=== PATIENT | female | born 1985 | race Caucasian/White ===

== ENCOUNTER 2017-01-25 15:58 | Observation (INO) | payer OTHER ==
--- NOTE | 2017-01-25 16:18 | EDPHY ---
H & P Stated Complaint: R SIDED ABD PAIN/NAUSEA SINCE TUESDAY Time Seen by Provider: 01/25/17 16:09 HPI/ROS: CHIEF COMPLAINT: Nausea, diarrhea, abdominal pain. HISTORY OF PRESENT ILLNESS: This patient is a 31 y/o female complaining of nausea, abdominal pain, and diarrhea onset Tuesday. Initially, she had diarrhea intermittently all afternoon. Tuesday evening she developed tense pressure in her right abdomen with associated nausea which persisted through yesterday afternoon. She visited the nurse at her apartment complex, but her pain was resolving by yesterday afternoon. This morning, she began feeling feverish, and her nausea returned as well as her right-sided abdominal pain. Measured her temperature and was afebrile. She visited the nurse again, who could could not rule out appendicitis and recommended she present for evaluation. She endorses slight dysuria, but states this is normal for her. She denies hematochezia, melena, hematuria or other associated symptoms. REVIEW OF SYSTEMS: A 10 point review of systems was performed and is negative with the exception of the elements mentioned in the history of present illness. - Personal History LMP (Females 10-55): 22-28 Days Ago Current Tetanus/Diphtheria Vaccine: No - Medical/Surgical History PMH: 1. LAP Hx Asthma: No Hx Chronic Respiratory Disease: No Hx Diabetes: No Hx Cardiac Disease: No Hx Renal Disease: No Hx Cirrhosis: No Hx Alcoholism: No Hx HIV/AIDS: No Hx Splenectomy or Spleen Trauma: No Other PMH: LAP - Social History Smoking Status: Never smoked Additional Social History: Lives in [place]. Works at [employer]. Nonsmoker. - Physical Exam Exam: General Appearance: Alert, no distress Eyes: Pupils equal and round, no conjunctival pallor or injection ENT, Mouth: Mucous membranes moist Neck: Normal inspection Respiratory: Lungs are clear to auscultation Cardiovascular: Regular rate and rhythm Gastrointestinal: RLQ tenderness. Abdomen is soft. Neurological: A&O, nonfocal, normal gait Skin: Warm and dry, no rash Extremities: Nontender, no pedal edema Psychiatric: Mood and affect normal Constitutional: Initial Vital Signs Temperature (C) 36.7 C 01/25/17 16:02 Heart Rate 75 01/25/17 16:02 Respiratory Rate 18 01/25/17 16:02 Blood Pressure 123/83 H 01/25/17 16:02 O2 Sat (%) 96 01/25/17 16:02 O2 Delivery Mode Room Air Allergies/Adverse Reactions: onion Allergy (Intermediate, Verified 01/25/17 18:59) Swelling/neck,face,throat Home Medications: Medication Instructions Recorded Amphet Asp and D/Amphet [Adderall 20 mg PO DAILY06 01/25/17 20 mg (*)] Ibuprofen [Motrin (*)] 200 - 600 mg PO Q6H PRN 01/25/17 Pseudoephedrine HCl [Sudafed 12 120 mg PO BID PRN 01/25/17 Hour 120mg (*)] oxyCODONE/APAP 5/325 [Percocet 1 - 2 tab PO Q4HRS PRN #20 tab 01/26/17 5/325 (*)] Medical Decision Making - Diagnostics Imaging Results: Abdomen Ultrasound 01/25/17 16:18 Impression: Appendicitis. I telephoned results to Dr. Mary Resendiz at 1734 hours. Imaging: Discussed imaging studies w/ scale model maker Radiologist ED Course/Re-evaluation: 31 y/o female presents with 2 day history of nausea and abdominal pain. Exam reveals RLQ tenderness. Plan for labs including UA, CBC, BMP, BCHG. Plan for US abdomen/pelvis to evaluate for acute processes. 17:[address] Levine, radiologist. US abdomen is positive for appendicitis. Ultrasound results discussed with the patient. 18:[address] Anderson, general surgeon. He will evaluate the patient. Administered 1gm IV Ertapenem. She will go directly to surgery with Dr. Anderson. Differential Diagnosis: Differential diagnosis includes though it is not limited to appendicitis, cholecystitis, diverticulitis, pyelonephritis, bowel perforation, small bowel obstruction. - Data Points Laboratory Results: Laboratory Results 01/25/17 16:24 01/25/17 16:24 Medications Given: Discontinued Medications Amphetamine/Dextroamphetamine (Adderall) 20 mg PO DAILY06 [facility] Stop: 07/25/17 05:59 Last Admin: 01/26/17 05:40 Dose: Not Given Bupivacaine HCl (Sensorcaine 0.25% Sdv) Confirm Administered Dose 30 ml .ROUTE .STK-MED ONE Stop: 01/25/17 18:38 Last Admin: 01/25/17 20:07 Dose: 20 ml Epinephrine HCl (Epinephrine) Confirm Administered Dose 1 mg .ROUTE .STK-MED ONE Stop: 01/25/17 18:38 Last Admin: 01/25/17 20:09 Dose: 0.15 mg Ertapenem 1 gm/ Sodium (Chloride) 100 mls @ 200 mls/hr IV EDNOW ONE PRN Reason: Protocol Stop: 01/25/17 18:05 Last Admin: 01/25/17 18:19 Dose: 100 mls Lactated Ringer's (Lr) 1,000 mls @ 0 mls/hr IV ONCE ONE PRN Reason: Per Protocol Stop: 01/25/17 19:18 Last Admin: 01/25/17 19:21 Dose: 1,000 mls Potassium Chloride/Dextrose/Sod Cl (D5w 1/2 Ns W/ 20 Kcl/L) 1,000 mls @ 100 mls /hr IV CONT CHIKA Stop: 07/24/17 20:29 Last Admin: 01/25/17 21:46 Dose: 1,000 mls Ibuprofen (Motrin) 600 mg PO Q8HRS CHIKA Stop: 07/24/17 21:59 Last Admin: 01/26/17 10:42 Dose: 600 mg Meperidine HCl (Demerol 25 Mg/Ml Syringe) 12.5 - 25 mg IVP ONCE PRN PRN Reason: PACU,shivering/rigors Stop: 01/25/17 21:21 Last Admin: 01/25/17 20:40 Dose: 12.5 mg Ondansetron HCl (Zofran) 2 - 4 mg IVP Q10M PRN PRN Reason: PACU, Nausea/Vomiting Stop: 01/25/17 21:21 Last Admin: 01/25/17 20:39 Dose: 4 mg Promethazine HCl (Phenergan) 6.25 - 12.5 mg IVP Q5M PRN PRN Reason: PACUNausea/Vomiting, Unable PO Stop: 01/25/17 21:21 Last Admin: 01/25/17 20:52 Dose: 6.25 mg Departure - Departure Disposition: [facility] Acute Clinical Impression: Acute appendicitis Condition: Good Report Scribed for: Su Resendiz Report Scribed by: Yoly Monroy Date of Report: 01/25/17 Time of Report: 16:18 Physician Review and Approval Statement: 01/25/17 16:18 Portions of this note were transcribed by a medical collections. I personally performed a history, physical exam, medical decision making, and confirmed accuracy of information the transcribed note.
[2017-01-25 16:40] LABS: % IMMATURE GRANULYOCYTES 0.4 % (0.0-1.1); ABSOLUTE IMMATURE GRANULOCYTES 0.06 10^3/uL (0.00-0.10); ADD DIFF? NO; ADD MORPH? NO; ADD SCAN? NO; ATYPICAL LYMPHOCYTE FLAG 0 (0-99); FRAGMENT RBC FLAG 0 (0-99); HEMATOCRIT 40.4 % (38.0-47.0); LEFT SHIFT FLG 0 (0-99); LIPEMIA HEMOLYSIS FLAG 80 (0-99); MEAN CELL HEMOGLOBIN 24.9 pg (27.9-34.1); MEAN CELL HEMOGLOBIN CONCENTR. 32.2 g/dL (32.4-36.7); MEAN CELL VOLUME 77.2 fL (81.5-99.8); MEAN PLATELET VOLUME 9.4 fL (8.7-11.7); PLATELET CLUMPS FLAG 0 (0-99); PLATELET COUNT 315 10^3/uL (150-400); RED BLOOD CELL COUNT 5.23 10^6/uL (4.18-5.33)
[2017-01-25 16:48] LABS: ANION GAP 12 mEq/L (8-16); CALCIUM 9.9 mg/dL (8.5-10.4); CARBON DIOXIDE 21 mEq/l (22-31); CHLORIDE 103 mEq/L (97-110); CREATININE 0.7 mg/dL (0.6-1.0); GLOMERULAR FILTRATION RATE > 60; GLUCOSE 96 mg/dL (70-100); SODIUM 136 mEq/L (134-144)
[2017-01-25 16:55] LABS: COLOR YELLOW; LEUKOCYTE ESTERASE,URINE NEGATIVE (NEGATIVE); NITRITE,URINE NEGATIVE (NEGATIVE)
[2017-01-25] MEDS ORDERED: ERTAPENEM 1 GM in NS 100 ML IV ONE (17:36)
[2017-01-25] MEDS ORDERED: BUPIVACAINE 0.25% 30 ML SDV ONE (18:37)
--- NOTE | 2017-01-25 18:44 | PDGENHP ---
History and Physical - Chief Complaint abd pain - History of Present Illness Pain since Tuesday, has relocated to the RLQ. Is associated with nausea and not vomiting. Pain is 8/10 in intensity. 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 [place] Review of Systems Review of Systems: ROS: 10pt was reviewed & negative except for what was stated in HPI & below Physical Exam Physical Exam: Temp Pulse Resp BP Pulse Ox 36.7 C 88 16 130/74 H 98 01/25/17 16:02 01/25/17 17:57 01/25/17 17:57 01/25/17 17:57 01/25/17 17:57 Constitutional: no apparent distress, appears nourished Eyes: PERRL, anicteric sclera Ears, Nose, Mouth, Throat: moist mucous membranes, hearing normal Cardiovascular: regular rate and rhythym, no murmur, rub, or gallop Respiratory: no respiratory distress, no rales or rhonchi Gastrointestinal: normoactive bowel sounds, other (TTP in the RLQ, no rebound tenderness ) Skin: warm, normal color Musculoskeletal: full muscle strength, no muscle tenderness Neurologic: AAOx3 Psychiatric: interacting appropriately Lymph, Heme, Immunologic: no cervical LAD, no supraclavicular LAD Lab Data & Imaging Review 01/25/17 16:24 01/25/17 16:24 WBC 13.66 10^3/uL (3.80-9.50) H 01/25/17 16:24 RBC 5.23 10^6/uL (4.18-5.33) 01/25/17 16:24 Hgb 13.0 g/dL (12.6-16.3) 01/25/17 16:24 Hct 40.4 % (38.0-47.0) 01/25/17 16:24 MCV 77.2 fL (81.5-99.8) L 01/25/17 16:24 MCH 24.9 pg (27.9-34.1) L 01/25/17 16:24 MCHC 32.2 g/dL (32.4-36.7) L 01/25/17 16:24 RDW 14.0 % (11.5-15.2) 01/25/17 16:24 Plt Count 315 10^3/uL (150-400) 01/25/17 16:24 MPV 9.4 fL (8.7-11.7) 01/25/17 16:24 Neut % (Auto) 81.8 % (39.3-74.2) H 01/25/17 16:24 Lymph % (Auto) 11.8 % (15.0-45.0) L 01/25/17 16:24 [place] % (Auto) 5.2 % (4.5-13.0) 01/25/17 16:24 Eos % (Auto) 0.3 % (0.6-7.6) L 01/25/17 16:24 Baso % (Auto) 0.5 % (0.3-1.7) 01/25/17 16:24 Nucleat RBC Rel Count 0.0 % (0.0-0.2) 01/25/17 16:24 Absolute Neuts (auto) 11.17 10^3/uL (1.70-6.50) H 01/25/17 16:24 Absolute Lymphs (auto) 1.61 10^3/uL (1.00-3.00) 01/25/17 16:24 Absolute Monos (auto) 0.71 10^3/uL (0.30-0.80) 01/25/17 16:24 Absolute Eos (auto) 0.04 10^3/uL (0.03-0.40) 01/25/17 16:24 Absolute Basos (auto) 0.07 10^3/uL (0.02-0.10) 01/25/17 16:24 Absolute Nucleated RBC 0.00 10^3/uL (0-0.01) 01/25/17 16:24 Immature Gran % 0.4 % (0.0-1.1) 01/25/17 16:24 Immature Gran # 0.06 10^3/uL (0.00-0.10) 01/25/17 16:24 Sodium 136 mEq/L (134-144) 01/25/17 16:24 Potassium 4.0 mEq/L (3.5-5.2) 01/25/17 16:24 Chloride 103 mEq/L (97-110) 01/25/17 16:24 Carbon Dioxide 21 mEq/l (22-31) L 01/25/17 16:24 Anion Gap 12 mEq/L (8-16) 01/25/17 16:24 BUN 8 mg/dL (7-23) 01/25/17 16:24 Creatinine 0.7 mg/dL (0.6-1.0) 01/25/17 16:24 Estimated GFR > 60 01/25/17 16:24 Glucose 96 mg/dL (70-100) 01/25/17 16:24 Calcium 9.9 mg/dL (8.5-10.4) 01/25/17 16:24 Beta HCG, Qual NEGATIVE 01/25/17 16:24 Urine Color YELLOW 01/25/17 16:15 Urine Appearance CLEAR 01/25/17 16:15 Urine pH 5.0 (5.0-7.5) 01/25/17 16:15 Ur Specific [place] 1.020 (1.002-1.030) 01/25/17 16:15 Urine Protein NEGATIVE (NEGATIVE) 01/25/17 16:15 Urine Ketones 1+ (NEGATIVE) H 01/25/17 16:15 Urine Blood NEGATIVE (NEGATIVE) 01/25/17 16:15 Urine Nitrate NEGATIVE (NEGATIVE) 01/25/17 16:15 Urine Bilirubin NEGATIVE (NEGATIVE) 01/25/17 16:15 Urine Urobilinogen NEGATIVE EU (0.2-1.0) 01/25/17 16:15 Ur Leukocyte Esterase NEGATIVE (NEGATIVE) 01/25/17 16:15 Urine Glucose NEGATIVE (NEGATIVE) 01/25/17 16:15 Visualized and Interpreted imaging results: Yes Interpretation: US: acute, nonperforated appendicitis Assessment & Plan Assessment: Acute appendicitis (Acute) Plan: IV Abx in ED, to OR [facility] for lap appy. RBA discussed.
[2017-01-25] MEDS ORDERED: LR 1,000 ML IV ONE (19:17)
--- NOTE | 2017-01-25 19:18 | PDANEPAE ---
ANE History of Present Illness appendicitis s/f lap appy ANE Past Medical History - Pulmonary History Hx Asthma/Reactive Airway Disease: Yes Hx Oxygen in Use at Home: No Hx Sleep Apnea: No Pulmonary History Comment: mild asthma - Endocrine History Hx Diabetes: No ANE Review of Systems Review of Systems: - Exercise capacity Exercise capacity: >=4 METS ANE Patient History - Allergies Allergies/Adverse Reactions: onion Allergy (Intermediate, Verified 01/25/17 18:59) Swelling/neck,face,throat - Home Medications Home medications: home medication list seen and reviewed Home Medications: Amphet Asp and D/Amphet [Adderall 20 mg (*)] 20 mg PO DAILY06 01/25/17 [Last Taken 01/25/17 06:00] Ibuprofen [Motrin (*)] 200 - 600 mg PO Q6H PRN 01/25/17 [Last Taken 01/21/17] Pseudoephedrine HCl [Sudafed 12 Hour 120mg (*)] 120 mg PO BID PRN 01/25/17 [ Last Taken 01/17/17] - NPO status NPO Since - Liquids (Date): 01/25/17 NPO Since - Liquids (Time): 15:00 (H2O,peptobismal) NPO Since - Solids (Date): 01/25/17 NPO Since - Solids (Time): 08:00 - Anes Hx Anes Hx: no prior problems - Smoking Hx Smoking Status: Never smoked - Alcohol Use Alcohol Use: None ANE Labs/Vital Signs - Labs Result Diagrams: 01/25/17 16:24 01/25/17 16:24 - Vital Signs Blood Pressure: 127/80 Heart Rate: 89 Respiratory Rate: 16 O2 Sat (%): 98 Height: 157.48 cm Weight: 86.183 kg ANE Physical Exam - Airway Mallampati Score: Class 1 Mouth exam: normal dental/mouth exam - Pulmonary Pulmonary: no respiratory distress - Cardiovascular Cardiovascular: regular rate and rhythym - ASA Status ASA Status: II, E ANE Anesthesia Plan Anesthesia Plan: general endotracheal anesthesia (R/B/A explained and patient agrees to proceed.)
[2017-01-25] MEDS ORDERED: fentaNYL 100 MCG/2 ML INJ ONE (19:26)
[2017-01-25] MEDS ORDERED: ROCURONIUM 50 MG/5 ML VIAL ONE (19:27)
[2017-01-25] MEDS ORDERED: DEXAMETHASONE 4 MG/ML VIAL ONE ×2 (19:27)
[2017-01-25] MEDS ORDERED: LIDOCAINE 2% 100 MG/5 ML SYR ONE (19:27)
[2017-01-25] MEDS ORDERED: PROPOFOL/EMULSION 500 MG/50 ML BOTTLE IV ONE (19:27)
[2017-01-25] MEDS ORDERED: ONDANSETRON 4 MG/2 ML VIAL ONE ×2 (19:27→20:38)
[2017-01-25] MEDS ORDERED: SUGAMMADEX SODIUM 200 MG/2 ML VIAL IVP ONE (20:03)
[2017-01-25] MEDS ORDERED: KETOROLAC 30 MG/1 ML SDV ONE (20:03)
[2017-01-25] MEDS ORDERED: OXYCODONE/APAP 5/325 TAB PO PRN ×2 (20:18→20:21)
[2017-01-25] MEDS ORDERED: ONDANSETRON 4 MG/2 ML VIAL IVP PRN ×2 (20:18→20:21)
--- NOTE | 2017-01-25 20:18 | POSTOPPROG ---
Post Op Note Date of Operation: 01/25/17 Surgeon: Avel Anderson Anesthesiologist: Curtis Anesthesia: GET(General Endotracheal) Pre-op Diagnosis: Appendicitis Post-op Diagnosis: same Procedure: Lap appy Findings: acute, early appendicitis Inf/Abcess present in the surg proc area at time of surgery?: No EBL: Minimal Total fluids administered: 1000cc NS washout Specimen(s): appendix
[2017-01-25] MEDS ORDERED: ACETAMINOPHEN 500 MG TAB PO PRN (20:21)
[2017-01-25] MEDS ORDERED: LABETALOL HCL 5 MG/ML 20 ML MDV IVP PRN (20:21)
[2017-01-25] MEDS ORDERED: METOCLOPRAMIDE 10 MG/2 ML VIAL IVP PRN (20:21)
[2017-01-25] MEDS ORDERED: NALOXONE HCL 0.4 MG/ML INJ IVP PRN (20:21)
[2017-01-25] MEDS ORDERED: fentaNYL 100 MCG/2 ML INJ IVP PRN (20:21)
[2017-01-25] MEDS ORDERED: PROMETHAZINE HCL 25 MG/ML INJ IVP PRN (20:21)
[2017-01-25] MEDS ORDERED: ALBUTEROL 3 ML DEYVIAL IH PRN (20:21)
[2017-01-25] MEDS ORDERED: LR 500 ML IV PRN (20:21)
[2017-01-25] MEDS ORDERED: DEXAMETHASONE 4 MG/ML VIAL IVP PRN (20:21)
--- NOTE | 2017-01-25 20:22 | POSTANESTH ---
Post Anesthetic Evaluation Cardiovascular Status: Normal, Stable Respiratory Status: Normal, Stable Level of Consciousness/Mental Status: Can Participate in Eval Pain Control: Adequate, Prn Tx Ordered Nausea/Vomiting Control: Adequate, Prn Tx Ordered Complications Possibly Related to Anesthesia: None Noted
[2017-01-25] MEDS ORDERED: MEPERIDINE 25 MG/ML SYR ONE (20:26)
[2017-01-25] MEDS: MEPERIDINE 25 MG/ML SYR IVP PRN ×2 (20:27→20:40)
[2017-01-25] MEDS ORDERED: D5W 1/2 NS W/ 20 KCl/L 1,000 ML IV SCH (20:30)
[2017-01-25] MEDS ORDERED: PROMETHAZINE HCL 25 MG/ML INJ ONE (20:50)
[2017-01-25] MEDS: IBUPROFEN 600 MG TAB PO SCH (23:45)
[2017-01-26 03:40] VITALS: O2SAT 95
--- NOTE | 2017-01-26 05:58 | GOP ---
[f rep st] OPERATIVE REPORT DATE OF OPERATION: 01/25/2017 SURGEON: Avel Anderson MD SHELF DRIER OPERATOR: None. ANESTHESIA: General endotracheal. ANESTHESIOLOGIST: Dr. Acevedo. PREOPERATIVE DIAGNOSIS: Appendicitis. POSTOPERATIVE DIAGNOSIS: Appendicitis. PROCEDURE PERFORMED: Laparoscopic appendectomy. FINDINGS: Acute early appendicitis. Minimal turbid fluid evacuated from the pelvis. SPECIMENS: Appendix. ESTIMATED BLOOD LOSS: 5 cc. DESCRIPTION OF PROCEDURE: The patient was greeted in the preoperative suite. Once again, risks, brendan efits, and alternatives were discussed. The consent was signed. She was then taken back to the oper ative suite and placed on the OR table in the supine position. After all anesthesia machines, includ ing SCDs, were on and functioning, a World Health Organization time-out was performed. After success ful induction of general anesthesia, the patient's abdomen was widely prepped and draped in a typical sterile fashion. I entered the abdomen via an infraumbilical cutdown through which I passed a Veres s needle. I achieved pneumoperitoneum to 15 mmHg CO2, which was well tolerated by the patient. Thro ugh this site I inserted, using the Visiport technique, a 12 mm port into the abdomen. I then placed 2 additional 5 mm ports under direct visualization, one in the suprapubic and one in the left lower quadrant. I identified the appendix by tracing the taeniae inferiorly. I created a window between t he base of the cecum and the mesoappendix, through which a single fire blue Endo-SANTO stapler amputate d the appendix from the cecal base. In the same fashion, using a white staple load I amputated the m esoappendix. The specimen was then removed with an EndoCatch bag. I irrigated the right lower quadr ant as well as the pelvis. I found no other betina pathology. I did have a small bleeding site on my mesial appendix, which was successfully made hemostatic with a 5 mm Endoclip. After this was done, I instilled local anesthesia into all port sites which were then removed under direct visualization. I closed my infraumbilical fascial site with an interrupted 0 Vicryl stitch, noting excellent fascia l reapproximation. The skin was then closed with Monocryl, over which Dermabond was placed. The pat ient was then extubated in the operative suite, and taken to the PACU in satisfactory condition. DRAINS: None. COUNTS: All counts were reported as correct x2. /[id number]/MODL
[2017-01-26] MEDS ORDERED: ADDERALL 20 MG TAB PO SCH (06:00)
[2017-01-26] MEDS: IBUPROFEN 600 MG TAB PO SCH ×2 (08:08→10:42)
[2017-01-26 08:34] VITALS: BP 96/59; PULSE 51; RESP 18; TEMP 97.2
== END 2017-01-26 10:51 | disposition home or self-care (01) ==
LOC: F3E 21:27
PROVIDERS: ADMIT Surgery; ATTEND Surgery
PROC: 0DTJ4ZZ Resection of Appendix, Percutaneous Endoscopic Approach (ICD-10-PCS; principal; 2017-01-25 19:00)
DX: K35.80 Unspecified acute appendicitis (principal)
CPT/HCPCS: 44970; 76705; 96365; 99285; G0378; J0171; J1100; J1335; J1885; J2001; J2405; J2550; J2704; J3010